=== PATIENT | female | born 1955 | race Caucasian/White ===

== ENCOUNTER 2019-07-14 11:05 | Outpatient (RCR) | payer MEDICARE, SELFPAY ==
[2019-07-14 11:08] VITALS: BMI 27.1
[2019-07-14 11:09] VITALS: BMI 27.1
== END 2019-10-12 23:59 | disposition home or self-care (01) ==
LOC: ANHDMC 11:05
PROVIDERS: Visit Provider Surgery
DX: E66.9 Obesity, unspecified (principal); Z71.3 Dietary counseling and surveillance
CPT/HCPCS: 97802

== ENCOUNTER 2020-11-09 12:54 | Outpatient (CLI) | payer MEDICARE, MEDICAID, SELFPAY ==
--- NOTE | ~2020-11-09 | MM_ITS ---
EXAMINATION: MM screening julia BI w andrea HISTORY: Screening mammogram TECHNIQUE: Craniocaudal and mediolateral oblique 3-D tomosynthesis images were obtained and synthetic 2-D images were generated. CAD analysis was submitted and interpreted. COMPARISON: No prior mammogram is available for comparison at this institution. BREAST PARENCHYMAL COMPOSITION: There are scattered areas of fibroglandular density. FINDINGS: RIGHT BREAST: An asymmetry is present in the posterior third of the lower breast in line with the nip ple axis on the craniocaudal view. LEFT BREAST: There is an obscured mass in the middle third of the outer breast 9 cm from the nipple b est appreciated on craniocaudal tomosynthesis image /. IMPRESSION: 1. Bilateral breast findings as described above. 2. Additional mammographic views and possible breast ultrasound are recommended. BI-RADS Category 0: Incomplete: Needs additional imaging evaluation. Reviewed, dictated and finalized at location A. IMPRESSION: 1. Bilateral breast findings as described above. 2. Additional mammographic views and possible breast ultrasound are recommended . BI-RADS Category 0: Incomplete: Needs additional imaging evaluation.
== END 2020-11-09 12:55 | disposition home or self-care (01) ==
LOC: ANHIMG 13:00
PROVIDERS: PCP Physician Assistant; Visit Provider Physician Assistant
DX: Z12.31 Encounter for screening mammogram for malignant neoplasm of breast (principal); R92.8 Other abnormal and inconclusive findings on diagnostic imaging of breast
CPT/HCPCS: 77063; 77067

== ENCOUNTER 2020-11-15 12:10 | Outpatient (CLI) | payer MEDICARE, MEDICAID, SELFPAY ==
--- NOTE | ~2020-11-15 | MMUS_ITS ---
EXAMINATION: MM diagnostic mammo BI, US breast BI limited HISTORY: Left breast mass and right breast asymmetry on screening mammogram TECHNIQUE: Additional 3-D tomosynthesis images of the breasts were performed and synthetic 2-D images were generated. CAD analysis was submitted and interpreted. High resolution limited bilateral breast ultrasound was performed. COMPARISON: 11/09/2020 FINDINGS: MAMMOGRAPHIC FINDINGS: Right breast: Asymmetry persists in the posterior third of the slightly inner breast 9 cm from the ni pple on the craniocaudal view. No no suspicious calcification or architectural distortion are identif ied. Left breast: There is a 6 mm oval, circumscribed, equal density mass in the middle third of the outer breast at the 3:00 location 8 cm from the nipple. A 7 mm oval, obscured, equal density masses presen t in the posterior third of the breast at the 3:00 location 13 cm from the nipple. ULTRASOUND: Right breast: No sonographic correlate is identified for the mammographic asymmetry. There are dilate d ducts at the 6:00 location of the breast. Left breast: A 12 mm x 3 mm oval, circumscribed, parallel, hypoechoic mass with no posterior features or internal vascularity is present at the 1:00 location 10 cm from the nipple. IMPRESSION: 1. Probably benign bilateral breast findings. 2. Recommend 6 month follow-up bilateral diagnostic mammogram and ultrasound. BI-RADS category 3, probably benign findings. Reviewed, dictated and finalized at location A. IMPRESSION: 1. Probably benign bilateral breast findings. 2. Recommend 6 month follow-up bilateral diagnostic mammogram and ultrasound. BI-RADS category 3, probably benign findings.
== END 2020-11-15 12:11 | disposition home or self-care (01) ==
LOC: ANHIMG 12:13
PROVIDERS: PCP Physician Assistant; Visit Provider Physician Assistant
DX: N63.21 Unspecified lump in the left breast, upper outer quadrant (principal); N60.41 Mammary duct ectasia of right breast
CPT/HCPCS: 76642; 77066

== ENCOUNTER 2021-08-04 13:07 | Outpatient (CLI) | payer MEDICARE, MEDICAID, SELFPAY ==
--- NOTE | ~2021-08-04 | MMUS_ITS ---
EXAMINATION: MM diagnostic julia BI w andrea, US breast LT limited HISTORY: Follow-up breast asymmetries TECHNIQUE: Additional 3-D tomosynthesis images of the breasts were performed and synthetic 2-D images were generated. CAD analysis was submitted and interpreted. High resolution Limited left breast ultr asound was performed. COMPARISON: Comparison to multiple prior studies sequentially, with oldest reviewed study dated 11/09. BREAST PARENCHYMAL COMPOSITION: Breast composed of scattered areas of fibroglandular density. FINDINGS: MAMMOGRAPHIC FINDINGS: The breasts are stable. No suspicious masses, calcifications or architectural distortion in either br east to suggest malignancy. ULTRASOUND: Limited left breast ultrasound: There is a focally prominent duct at the 1:00 position, 10 cm from th e nipple. No suspicious masses to suggest malignancy. IMPRESSION: 1. No evidence for malignancy in either breast. 2. Routine yearly screening mammogram and regular clinical breast examination are recommended. BI-RADS Category 1: Negative Reviewed, dictated and finalized at location A. GHT LOADING SUPERVISOR IMPRESSION: 1. No evidence for malignancy in either breast. 2. Routine yearly screening mammogram and regular clinical breast examination a re recommended. BI-RADS Category 1: Negative
== END 2021-08-04 13:08 | disposition home or self-care (01) ==
LOC: ANHIMG 13:09
PROVIDERS: PCP Physician Assistant; Visit Provider Physician Assistant
DX: R92.8 Other abnormal and inconclusive findings on diagnostic imaging of breast (principal)
CPT/HCPCS: 76642; 77062; 77066; G0279

== ENCOUNTER 2021-11-22 14:07 | Outpatient (CLI) | payer MEDICARE, MEDICAID, SELFPAY ==
--- NOTE | ~2021-11-22 | US_ITS ---
EXAMINATION: US art doppler w press LE BI DATE: 11/22/2021 15:02 INDICATION: Peripheral vascular disease. TECHNIQUE: Segmental pressures and plethysmographic and Doppler waveforms of the brachial and lower e xtremity arteries were obtained. COMPARISON: None. FINDINGS: Right and left brachial artery pressures of 130 mm Hg and 132 mm Hg, respectively, are concordant (no rmal difference <= 30 mmHg). The right and left high-thigh pressure indices are 1.22 and 1.17, respec tively (normal > 1.2). The right ankle-brachial index (NICOLE) is 1.07 (normal >= 0.9-1). The right great toe-brachial index (T BI) is 0.84 (normal >= 0.6-0.8). The right lower extremity segmental pressure gradients are normal (n ormal gradients <= 20-30 mmHg between adjacent levels on the same leg or the same levels on the two l egs). Arterial waveforms are biphasic with brisk systolic upstrokes throughout the arteries of the ri ght lower limb. The left NICOLE is 1.10. The left TBI is 0.66. The left lower extremity segmental pressure gradients are normal. Arterial waveforms are biphasic with brisk systolic upstrokes at the arteries throughout the left lower limb. IMPRESSION: 1. Normal bilateral ABIs and TBIs. No significant occlusive disease. Reviewed, dictated and finalized at location B.
--- NOTE | ~2021-11-22 | US_ITS ---
EXAMINATION: US renal BI DATE: 11/22/2021 15:02 INDICATION: RT FLANK PAIN and stage III chronic kidney disease. TECHNIQUE: Multiple ultrasound grayscale images of the kidneys were obtained. COMPARISON: 06/09/2019. FINDINGS: The right kidney measures 10.0 x 3.9 x 3.2 cm. The left kidney measures 10.1 x 3.9 x 4.9 cm. The kid neys demonstrate normal parenchymal echogenicity. Normal color Doppler flow bilaterally. There is no hydronephrosis. The bladder is partially distended. IMPRESSION: 1. Normal renal ultrasound findings. Reviewed, dictated and finalized at location K.
== END 2021-11-22 14:08 | disposition home or self-care (01) ==
LOC: ANHIMG 14:11
PROVIDERS: PCP Physician Assistant; Visit Provider Physician Assistant
DX: I73.9 Peripheral vascular disease, unspecified (principal)
CPT/HCPCS: 76775; 93923

== ENCOUNTER 2022-09-29 21:01 | Emergency (ER) | payer MEDICARE, MEDICAID, SELFPAY ==
--- NOTE | ~2022-09-29 | XR_ITS ---
XR chest 2V DATE: 09/29/2022 23:16 INDICATION: Dysphagia, burning in the throat, vomiting TECHNIQUE: PA and lateral views COMPARISON: None FINDINGS: Normal heart size. No hilar or mediastinal enlargement. No pulmonary infiltrate or consolid ation, pleural effusion or pulmonary vascular congestion or pneumothorax. Minimal dextroscoliosis of the thoracic spine. IMPRESSION: No active cardiopulmonary disease Reviewed, dictated and finalized at location A. ER SULFATE
[2022-09-29 21:04] VITALS: BP 139/85; PULSE 90; RESP 18; TEMP 36.7; O2SAT 99
[2022-09-29 22:53] LABS: Basophils Absolute Auto 0.1 K/mm3 (0.0-0.1); Basophils Percent Auto 0.8 % (0.2-1.2); Eosinophils Absolute Auto 0.1 K/mm3 (0-0.3); Eosinophils Percent Auto 0.6 % (0-4.4); Hematocrit 39.9 % (37.0-47.0); Hemoglobin 13.9 g/dL (12.0-15.0); Immature Granulocyte Absolute 0.04 K/mm3 (0.00-0.031); Immature Granulocyte Percent A 0.3 % (0-0.5); Lymphocytes Absolute Auto 2.19 K/mm3 (0.9-3.2); Lymphocytes Percent Auto 18.4 % (18.3-44.2); Mean Corpuscular HGB Conc 34.8 g/dl (32-36); Mean Corpuscular Hemoglobin 32.6 pg (26-34); Mean Corpuscular Volume 93.7 fl (80-100); Mean Platelet Volume 9.2 fl (7.4-10.4); Monocytes Absolute Auto 0.9 K/mm3 (0.1-0.6); Monocytes Percent Auto 7.8 % (2.6-8.5); Neutrophils Absolute Auto 8.6 K/mm3 (1.3-6.7); Neutrophils Percent Auto 72.1 % (45.5-73.1); Platelet Count Result 274 k/mm3 (150-375); Red Blood Count 4.26 M/mm3 (4.2-5.4); Red Cell Distribution Width 13.2 % (11.5-14.5); White Blood Count 11.9 K/mm3 (4.5-10.0)
[2022-09-29 22:58] LABS: Add Urine Microscopic? YES; Appearance Urine Clear (Clear); Bilirubin Urine Negative (Negative); Blood Urine Trace-intact (Negative); Color Urine Yellow (Yellow); Glucose Urine UA Negative (Negative); Ketones Urine Negative (Negative); Leukocyte Esterase Ur Negative LEU/UL (Negative); Nitrate Urine Negative (Negative); Protein Urine Negative (Negative); RBC Urine 0-2 /hpf (0-2); Squamous Epithelial Cell Urine Occasional /hpf (Few); Urobilinogen Urine 0.2 mg/dL (<2.0); WBC Urine 0-3 /hpf; pH Urine 6.5 (5.0-9.0)
--- NOTE | 2022-09-29 22:58 | ED.NAVMDI ---
HPI - Nausea/Vomiting/Diarrhea General Chief complaint: Nausea/Vomiting/Diarrhea Stated complaint: Nausea, vomiting Time Seen by Provider: 09/29/22 22:37 History of Present Illness HPI Narrative: 67-year-old female with a history of hypertension and renal artery stenosis reports to the ED for dysphagia x3 months. Patient states she has increasing difficulty swallowing solids and liquids. Reports 2 days ago she had 1 episode of red/orange diarrhea, and one episode of vomiting with scant blood. States she contacted her primary care who prescribed Flagyl and Zofran. She has not had diarrhea or vomiting since. Patient states she was just eating Jay food with chicken, had 2 bites and cannot swallow it, and had to spit it out. Patient reports having a colonoscopy about 4 years ago that showed diverticulosis, no other abnormal findings. She has not had a endoscopy. Denies abdominal pain, fever, chest pain, shortness of breath, urinary complaints. Related Data Home Medications Medication Instructions Recorded Confirmed estradiol 0.01% (0.1 mg/gram) vaginal 09/29/22 vaginal cream hydrocortisone 2.5 % topical cream 09/29/22 with perineal applicator (Procto-Med HC) levothyroxine 88 mcg tablet mcg 09/29/22 lisinopril 10 tablet 09/29/22 mg-hydrochlorothiazide 12.5 mg tablet metronidazole 500 mg tablet mg 09/29/22 ondansetron HCl 8 mg tablet 8 mg PO Q8H 09/29/22 09/29/22 valacyclovir 1 gram tablet mg 09/29/22 Allergies Allergy/AdvReac Type Severity Reaction Status Date / Time No Known Allergies Allergy Verified 09/29/22 21:10 Review of Systems Review of Systems: CONSTITUTIONAL: Denies fever, chills EYES: Denies visual changes, redness, or discharge. ENT: Denies rhinorrhea, congestion, sore throat, or otalgia. CARDIOVASCULAR: Denies chest pain, palpitations, or edema. RESPIRATORY: Denies cough or dyspnea. GASTROINTESTINAL: See HPI GENITOURINARY: Denies dysuria or hematuria. SKIN: Denies rash or itching. MUSCULOSKELETAL: Denies back pain, joint pain, or myalgia. NEUROLOGIC: Denies headache, numbness, dizziness, or weakness. PSYCHIATRIC: Denies anxiety or depression. [facility] Family History Family History (Updated 04/15/14 @ 07:13 by DOCTOR UNKNOWN) Father Cerebrovascular accident Family history of coronary artery disease Mother Carcinoma of colon Grandparent Diabetes mellitus Social History Social History Smoking status: Never smoker Second hand tobacco smoke exposure: No Alcohol intake: never Spiritual care concerns: No Exam Narrative: GENERAL: Well-appearing, well-nourished, and in no acute distress. HEAD: Normocephalic, atraumatic. EYES: PERRLA and EOMI. ENT: Nares clear, no rhinorrhea or epistaxis. Mucous membranes moist. Oropharynx without tonsillar hypertrophy exudate or other lesions. NECK: Supple. No adenopathy or masses. No carotid bruits or JVD CHEST: Clear to auscultation. No respiratory distress. No wheezes rales or rhonchi HEART: Regular rate and rhythm. No murmur heard. Normal peripheral pulses. ABDOMEN: Soft, nontender, nondistended, normal active bowel sounds. No organomegaly, distention, rigidity, guarding. Digital rectal exam did not reveal external hemorrhoids, I did not feel internal hemorrhoids. There was gross blood on exam glove. Hemoccult is positive EXTREMITIES: Normal range of motion. No edema. SKIN: Warm, dry, no rash. NEURO: No focal deficits. Alert and oriented x3. PSYCH: Normal mood and affect. Course Course Emergency Course: Patient is able to tolerate p.o. potassium repletion and GI cocktail without issues. She is expressing that she is unable to tolerate food and water at home, however objectively speaking she has been tolerating p.o. intake fine in the ED. Vital Signs Vital signs: Vital Signs Temperature 98.0 F 09/29/22 21:04 Pulse Rate 90 09/29/22 21:04 Respiratory Rate 18 09/29/22 21:04 Blood Pressure 139/85 09/19
[2022-09-29 23:06] LABS: Alanine Aminotransferase 21 U/L (6-35); Albumin Level 4.6 g/dL (3.5-5.1); Alkaline Phosphatase 98 U/L (38-126); Anion Gap 9 mmol/L (8-16); Aspartate Amino Transferase 22 U/L (14-36); Bilirubin,Total 0.7 mg/dL (0.2-1.3); Blood Urea Nitrogen 13 mg/dL (7-17); Carbon Dioxide 27 mmol/L (22-30); Chloride 100 mmol/L (98-107); Estimated CRCL calculation 35 ml/min; Estimated Glomerular Filt Rate 41; Glucose 99 mg/dL (65-110); Lipase 91 U/L (23-300); Potassium 2.9 mmol/L (3.4-5.0); Sodium 136 mmol/L (137-145)
--- NOTE | 2022-09-29 23:10 | ECG_ITS ---
Measurements Intervals [place] Rate: 72 P: 34 MI: 145 QRS: 65 QRSD: 91 T: 16 QT: 390 QTc: 428 Interpretive Statements SINUS RHYTHM NONSPECIFIC T-WAVE ABNORMALITY NO PREVIOUS ECG AVAILABLE FOR COMPARISON Electronically Signed On 09-30-2022 8:28:32 NETTING INSPECTOR by Elizabeth Lundy M.D.
[2022-09-29] MEDS: ONDANSETRON HCL ODT 4 MG TABLET PO (23:37)
[2022-09-29] MEDS: FAMOTIDINE 20 MG/2 ML VIAL IV PUSH (23:38)
[2022-09-29] MEDS: POTASSIUM CHLORIDE 20 MEQ PACKET (FOR LIQUID) 40 MEQ PO (23:41)
[2022-09-29 23:43] LABS: Magnesium 2.3 mg/dL (1.6-2.3)
[2022-09-30] MEDS: BELLADONNA ALK/PHENOB ELIX 10 ML, MAG HYDROX/ALUMINUM HYD/SIMETH 30 ML, LIDOCAINE HCL 2... PO (00:03)
[2022-09-30 01:31] VITALS: BP 130/82; PULSE 78; RESP 18; TEMP 36.2; O2SAT 100
== END 2022-09-30 01:41 | disposition home or self-care (01) ==
PROVIDERS: Emergency Medicine; Emergency Provider Physician Assistant; PCP Physician Assistant
DX: R13.10 Dysphagia, unspecified (principal); K92.1 Melena; I10 Essential (primary) hypertension; I70.1 Atherosclerosis of renal artery; K57.90 Diverticulosis of intestine, part unspecified, without perforation or abscess without bleeding; R94.31 Abnormal electrocardiogram [ECG] [EKG]
CPT/HCPCS: 36415; 71046; 80053; 81001; 83690; 83735; 85025; 93005; 96374; 99284; A9270

== ENCOUNTER 2023-01-17 13:19 | Outpatient (CLI) | payer MEDICARE, MEDICAID, SELFPAY ==
[2023-01-17 14:20] LABS: Phosphorus 3.6 mg/dL (2.5-4.5)
== END 2023-01-17 13:20 | disposition home or self-care (01) ==
PROVIDERS: PCP Physician Assistant; Visit Provider Physician Assistant
DX: E83.52 Hypercalcemia (principal); E78.5 Hyperlipidemia, unspecified
CPT/HCPCS: 36415; 84100

== ENCOUNTER 2023-02-12 13:05 | Outpatient (CLI) | payer MEDICARE, MEDICAID, SELFPAY ==
--- NOTE | ~2023-02-12 | DEXA_ITS ---
Bone Density Report Name: BUCKY ZIMMERMAN Age: 67 Sex: Female Ethnicity: White Date of : 1955 Indication: postmenopausal; screening for osteoporosis; parental hip fracture; prior fracture; Referring Provider: ARIANE, JORGE Pastrana Study: Bone densitometry was performed. Exam Date: February 12, 2023 Accession number: [id number] Bone Density: Region BMD T-score Z-score Classification AP Spine(L1-L4) 0.852 -1.8 0.0 Osteopenia Femoral Neck (Left) 0.647 -1.8 -0.3 Osteopenia Total Hip (Left) 0.809 -1.1 0.2 Osteopenia Femoral Neck (Right) 0.625 -2.0 -0.5 Osteopenia Total Hip (Right) 0.780 -1.3 -0.1 Osteopenia Total Hip Mean 0.795 -1.2 0.1 Osteopenia World Health Organization criteria for BMD impression classify patients as: Normal (T-score at or above -1.0), Osteopenia (T-score between -1.0 and -2.5), or Osteoporosis (T-score at or below -2.5). 10-year Fracture Risk(1): Major Osteoporotic Fracture 31% Hip Fracture 2.9% Reported Risk Factors: [place] (), Neck BMD=0.625, BMI=25.4, previous fracture, parental fracture (1) FRAX(R) Version 3.08. Fracture probability calculated for an untreated patient. Fracture probability may be lower if the patient has received treatment. Clinical Information Provided by Patient: Has had a low trauma fracture Parent has had a hip fracture Patient maximum height was 63 Menopause Age: 55 Onset of menses at age 14 Number of children 0 Impression: The patient has low bone mass, based on the Right Femoral Neck T-score. The patient has an estimated ten-year risk of hip fracture of 2.9% and an estimated ten-year risk of major fracture of 31%, based on the WHO FRAX algorithm. The patient has risk factors, including: parental hip fracture, previous fracture. Discussion: BONE DENSITY IS LOW AT ONE OR MORE SKELETAL SITES. THE PATIENT'S BMD AND CLINICAL RISK FACTORS CONTRIBUTE TO THIS PATIENT'S INCREASED RISK OF FRACTURE. This patient's lowest T-score is low at one or more skeletal sites. It meets the World Health Organization's (WHO) criteria for ?low bone mass? (T-score between -1.0 and -2.5). The patient's 10-year risk of a major osteoporotic fracture as calculated by FRAX exceeds the threshold where pharmacological therapy is recommended by the National Osteoporosis Foundation (NOF). However, all treatment decisions require clinical judgment and consideration of individual patient factors, including patient preferences, comorbidities, previous drug use, risk factors not captured in the FRAX model (e.g., frailty, falls, vitamin D deficiency, increased bone turnover, interval significant decline in bone density) and possible under or overestimation of fracture risk by FRAX. The patient should follow a healthful lifestyle (good nutrition with adequate ca
== END 2023-02-12 13:06 | disposition home or self-care (01) ==
PROVIDERS: PCP Physician Assistant; Visit Provider Physician Assistant
DX: Z78.0 Asymptomatic menopausal state (principal); M85.89 Other specified disorders of bone density and structure, multiple sites
CPT/HCPCS: 77080

== ENCOUNTER → 2023-05-28 13:26 | Outpatient (CLI) | payer MEDICARE, MEDICAID, SELFPAY ==
--- NOTE | ~2023-05-28 | MM_ITS ---
EXAMINATION: MM screening julia BI w andrea HISTORY: Screening mammogram TECHNIQUE: Craniocaudal and mediolateral oblique 3-D tomosynthesis images were obtained and synthetic 2-D images were generated. CAD analysis was submitted and interpreted. COMPARISON: 08/04/2021 bilateral diagnostic mammography and limited left breast ultrasound examinatio n, reported negative 11/15/2020 diagnostic bilateral mammogram and Limited bilateral breast ultrasound examination, reporte d benign 11/05/2020 bilateral screening mammogram BREAST PARENCHYMAL COMPOSITION: There are scattered areas of fibroglandular density. FINDINGS: Stable fibroglandular asymmetry. Scattered benign calcifications. There is no evidence of s uspicious mass, calcification, or architectural distortion to suggest malignancy in either breast. Th ere has been no suspicious interval change. IMPRESSION: 1. No mammographic evidence of malignancy. 2. Recommend routine screening mammography in one year. BI-RADS Category 2: Benign finding(s). Reviewed, dictated and finalized at location A.
== END ==
PROVIDERS: PCP Physician Assistant; Visit Provider Physician Assistant
DX: Z12.31 Encounter for screening mammogram for malignant neoplasm of breast (principal)
CPT/HCPCS: 77063; 77067

== ENCOUNTER 2023-10-14 14:34 | Emergency (ER) | payer MEDICARE, MEDICAID, SELFPAY ==
--- NOTE | ~2023-10-14 | US_ITS ---
EXAMINATION: US venous doppler [facility] DATE: 10/14/2023 18:05 INDICATION: pain, swelling BLE . TECHNIQUE: Grayscale images without and with compression and Doppler images of the bilateral lower ex tremity veins were obtained. COMPARISON: None FINDINGS: The right common femoral vein, profunda (deep) femoral vein, femoral vein, popliteal vein, peroneal v ein, posterior tibial veins, gastrocnemius vein, and greater saphenous vein are patent. The left common femoral vein, profunda (deep) femoral vein, femoral vein, popliteal vein, peroneal v ein, posterior tibial veins, gastrocnemius vein, and greater saphenous vein are patent. IMPRESSION: Patent bilateral lower extremity veins. No evidence of deep venous thrombosis. Reviewed, dictated and finalized at location K. E MARKER SMALL ARMS
[2023-10-14 15:02] VITALS: BP 120/80; PULSE 100; RESP 16; TEMP 37.2; O2SAT 100
--- NOTE | 2023-10-14 16:39 | ED.EXTPRO ---
HPI - Extremity Problem General Chief complaint: Extremity Problem,Nontraumatic <ANTONIO Guerra Last Filed: 10/14/23 16:50> Stated complaint: swollen foot <ANTONIO Guerra Last Filed: 10/14/23 16:50> Time Seen by Provider: 10/14/23 16:39 <ANTONIO Guerra Last Filed: 10/14/23 16:50> Focused HPI: Patient is a 68 y/o female who presents to the ED with c/o BLE swelling. Patient reports she was admitted to the hospital last week in [place] where she was visiting her sister. She was admitted for a SBO, underwent what she describes as a colonoscopy and had scar tissue removed. States she was told to stop her Lisinopril-hydrochlorothiazide during her hospitalization as she was also found to have hypokalemia at that time. Patient has been off of this medication for the last 1 week. Reports having increased pain in her lower extremities, calves down to her feet and toes. Complains of pain bilaterally, worse on the right, worse in her right 1st toe. Patient denies any numbness or tingling. Denies hx of DVT, though reports FHx of this. Denies hx of CHF. Denies CP/SOB. She is not on any anticoagulation. Denies any further abdominal concerns. GENERAL: Well-appearing, well-nourished, and in no acute distress. HEAD: Normocephalic, atraumatic. EYES: L eye strabismus. CHEST: Clear to auscultation. ?No respiratory distress. HEART: Regular rate and rhythm.?Pedal pulses easily palpable and intact bilaterally. MSK: Trace BLE, worse on R. Erythema noted to right dorsal foot extending into right 1st toe. Mild tenderness to palpation over right 1st MTP joint. Sensation intact. Cap refill intact. NEURO: ?Alert and oriented x3. Patient screened in triage and initial orders placed.? ?Additional care and disposition to be based upon?diagnostic testing and treatment. <ANTONIO Guerra Last Filed: 10/14/23 16:50> Source: patient <ANTONIO Guerra Last Filed: 10/14/23 16:50> Mode of arrival: ambulatory <Nini Walton PA-C - Last Filed: 10/14/23 16:50> Limitations: no limitations <Nini Walton PA-C - Last Filed: 10/14/23 16:50> Related Data Home medications: Home Medications Medication Instructions Recorded Confirmed estradiol 0.01% (0.1 mg/gram) vaginal 09/29/22 10/10/22 vaginal cream hydrocortisone 2.5 % topical cream 09/29/22 10/10/22 with perineal applicator (Procto-Med HC) levothyroxine 88 mcg tablet mcg 09/29/22 10/10/22 lisinopril 10 tablet 09/29/22 10/10/22 mg-hydrochlorothiazide 12.5 mg tablet metronidazole 500 mg tablet mg 09/29/22 10/10/22 ondansetron HCl 8 mg tablet 8 mg PO Q8H 09/29/22 10/10/22 valacyclovir 1 gram tablet mg 09/29/22 10/10/22 <ANTONIO Guerra Last Filed: 10/14/23 16:50> Allergies/Adverse reactions: Allergies Allergy/AdvReac Type Severity Reaction Status Date / Time No Known Allergies Allergy Verified 10/10/22 11:18 <Nini Walton PA-C - Last Filed: 10/14/23 16:50> Review of Systems Review of Systems: All systems reviewed & are unremarkable except as noted in HPI and below <Maggie Kwon MD - Last Filed: 10/14/23 18:57> [facility] Past Medical History Medical History: Medical History Diverticulosis Dysphagia Family hx of colon cancer GERD (gastroesophageal reflux disease) Hematochezia Hypertension <ANTONIO Guerra Last Filed: 10/14/23 16:50> Family History Family History: Family History Father Cerebrovascular accident Family history of coronary artery disease Mother Carcinoma of colon Grandparent Diabetes mellitus <ANTONIO Guerra Last Filed: 10/14/23 16:50> Social History Social History: Social History Smoking s
[2023-10-14 17:00] LABS: Basophils Absolute Auto 0.1 K/mm3 (0.0-0.1); Basophils Percent Auto 1.3 % (0.2-1.2); Eosinophils Absolute Auto 0.2 K/mm3 (0-0.3); Eosinophils Percent Auto 3.1 % (0-4.4); Hematocrit 41.2 % (37.0-47.0); Hemoglobin 13.5 g/dL (12.0-15.0); Immature Granulocyte Absolute 0.02 K/mm3 (0.00-0.031); Immature Granulocyte Percent A 0.3 % (0-0.5); Lymphocytes Absolute Auto 1.47 K/mm3 (0.9-3.2); Mean Corpuscular HGB Conc 32.8 g/dl (32-36); Mean Corpuscular Hemoglobin 32.9 pg (26-34); Mean Corpuscular Volume 100.5 fl (80-100); Mean Platelet Volume 9.6 fl (7.4-10.4); Monocytes Absolute Auto 0.6 K/mm3 (0.1-0.6); Monocytes Percent Auto 9.1 % (2.6-8.5); Neutrophils Absolute Auto 4.3 K/mm3 (1.3-6.7); Neutrophils Percent Auto 64.2 % (45.5-73.1); Platelet Count Result 310 k/mm3 (150-375); Red Cell Distribution Width 12.7 % (11.5-14.5); White Blood Count 6.7 K/mm3 (4.5-10.0)
[2023-10-14 17:08] LABS: Alanine Aminotransferase 40 U/L (6-35); Albumin Level 4.3 g/dL (3.5-5.1); Alkaline Phosphatase 94 U/L (38-126); Anion Gap 9 mmol/L (8-16); Aspartate Amino Transferase 29 U/L (14-36); Bilirubin,Total 0.9 mg/dL (0.2-1.3); Blood Urea Nitrogen 10 mg/dL (7-17); Calcium 9.7 mg/dL (8.4-10.2); Carbon Dioxide 25 mmol/L (22-30); Chloride 108 mmol/L (98-107); Estimated CRCL calculation 40 ml/min; Estimated Glomerular Filt Rate 55; Glucose 90 mg/dL (65-110); Potassium 3.4 mmol/L (3.4-5.0); Sodium 142 mmol/L (137-145)
[2023-10-14 17:12] LABS: Prothrombin Time 13.3 Seconds (11.1-14.7)
[2023-10-14 17:13] LABS: Partial Thromboplastin Time 27.4 SECONDS (22.3-36.8)
[2023-10-14 17:16] LABS: NT Pro B Type Natriuretic Pept 287 pg/mL (19.9-100)
--- NOTE | 2023-10-14 17:26 | PC.NURSE ---
Pt right great toe edematous, hot to touch, tender to touch. Pt reports for a few days . Pedal pulse palpable & strong. Denies diabetes
--- NOTE | 2023-10-14 17:29 | PC.NURSE ---
US notified pt in room #17 & ready for doppler
[2023-10-14 19:15] VITALS: BP 164/89; PULSE 81; RESP 18; TEMP 36.4; O2SAT 99
== END 2023-10-14 19:18 | disposition home or self-care (01) ==
PROVIDERS: Physician Assistant; Emergency Provider Emergency Medicine
DX: L03.115 Cellulitis of right lower limb (principal); I10 Essential (primary) hypertension; K21.9 Gastro-esophageal reflux disease without esophagitis; M79.605 Pain in left leg; M79.604 Pain in right leg
CPT/HCPCS: 36415; 80053; 83880; 85025; 85610; 85730; 93970; 99284

== ENCOUNTER 2025-02-17 14:14 | Outpatient (CLI) | payer MEDICARE, MEDICAID, SELFPAY ==
--- NOTE | ~2025-02-17 | DEXA_ITS ---
Bone Density Report Name: BUCKY ZIMMERMAN Age: 69 Sex: Female Ethnicity: White Date of : 1955 Indication: osteopenia; height loss; Referring Provider: KAROLINA, NINO Pastrana Study: Bone densitometry was performed. Exam Date: February 17, 2025 Accession number: [id number] Bone Density: Region BMD T-score Z-score Classification AP Spine(L1-L4) 0.837 -1.9 0.0 Osteopenia Femoral Neck (Left) 0.602 -2.2 -0.6 Osteopenia Total Hip (Left) 0.754 -1.5 -0.2 Osteopenia Femoral Neck (Right) 0.601 -2.2 -0.6 Osteopenia Total Hip (Right) 0.750 -1.6 -0.2 Osteopenia Total Hip Mean 0.752 -1.6 -0.2 Osteopenia World Health Organization criteria for BMD impression classify patients as: Normal (T-score at or above -1.0), Osteopenia (T-score between -1.0 and -2.5), or Osteoporosis (T-score at or below -2.5). 10-year Fracture Risk(1): Major Osteoporotic Fracture 12% Hip Fracture 2.2% Reported Risk Factors: [place] (), Neck BMD=0.602, BMI=26.2 (1) FRAX(R) Version 3.08. Fracture probability calculated for an untreated patient. Fracture probability may be lower if the patient has received treatment. Previous Exams: -- Region Exam Age BMD T-score BMD Change BMD Change Date g/cm2 vs Baseline vs Previous -- AP Spine (L1-L4) 02/17/2025 69 0.837 -1.9 -1.7% -1.7% 02/12/2023 67 0.852 -1.8 Total Hip(Left) 02/17/2025 69 0.754 -1.5 -6.7%* -6.7%* 02/12/2023 67 0.809 -1.1 Total Hip(Right) 02/17/2025 69 0.750 -1.6 -3.9%* -3.9%* 02/12/2023 67 0.780 -1.3 -- *Denotes significance at 95% confidence level, LSC for AP Spine = 0.022 g/cm2, LSC for Total Hip = 0.027 g/cm2 Clinical Information Provided by Patient: Has used the following medications: Vitamin D Patient maximum height was 63 Menopause Age: 55 Onset of menses at age 14 Number of children 0 Impression: The patient has low bone mass, based on the Left Femoral Neck T-score. The patient has an estimated ten-year risk of hip fracture of 2.2% and an estimated ten-year risk of major fracture of 12%, based on the WHO FRAX algorithm. The BMD for the Total Hip(Left) decreased, changing by -6.7% since the last DXA exam. The BMD for the Total Hip(Right) decreased, changing by -3.9% since the last DXA exam. Discussion: BONE DENSITY IS LOW AT ONE OR MORE SKELETAL SITES. This patient's lowest T-score is low at one or more skeletal sites. It meets the World Health Organization's (WHO) criteria for ?low bone mass? (T-score between -1.0 and -2.5). The patient's 10-year risk of fracture as calculated by FRAX is less than the threshold where pharmacological therapy is recommended by the National Osteoporosis Foundation (NOF). However, all treatment decisions require clinical judgment and consideration of individual patient factors, including patient preferences, comorbidities, previous drug use, risk factors not captured in the FRAX model (e.g., frailty, falls, vitamin D deficiency, increased bone turnover, interval significant decline in bone density) and possible under or overestimation of fracture risk by FRAX. The patient should follow a healthful lifestyle (good nutrition with adequate calcium and vitamin D, and appropriate weight-bearing exercise). Follow-Up: Consider repeating this study in 2 years to reassess this patient's status, or sooner if there is some new clinical indication. Reported by: JASON on 02/17/2025 2:50:00 PM. Reviewed, dictated and finalized at location A.
== END 2025-02-17 14:15 | disposition home or self-care (01) ==
LOC: MICIMG 14:18
PROVIDERS: PCP Emergency Medicine; Visit Provider Emergency Medicine
DX: M85.89 Other specified disorders of bone density and structure, multiple sites (principal); M81.0 Age-related osteoporosis without current pathological fracture
CPT/HCPCS: 77080

== ENCOUNTER 2025-07-22 14:33 | Outpatient (CLI) | payer MEDICARE, MEDICAID, SELFPAY ==
[2025-07-22 15:41] LABS: Cholesterol 152 mg/dL (0-200); HDL Direct 56 mg/dL; Triglycerides 48 mg/dL (<150)
[2025-07-22 16:18] LABS: Thyroid Stimulating Hormone 7.750 uIU/mL (0.465-4.680)
== END 2025-07-22 14:34 | disposition home or self-care (01) ==
LOC: ANHLAB 14:39
PROVIDERS: PCP Emergency Medicine; Visit Provider Emergency Medicine
DX: Z13.220 Encounter for screening for lipoid disorders (principal); R79.89 Other specified abnormal findings of blood chemistry; I10 Essential (primary) hypertension
CPT/HCPCS: 36415; 80061; 84443

== ENCOUNTER 2025-08-10 11:15 | Outpatient (CLI) | payer MEDICARE, MEDICAID, SELFPAY ==
--- OUTSIDE RECORDS SUMMARY | 2025-08-10 11:44 | XMS_ITS | Clinical Summary ---
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 Gender Identity Not on file Sexual Orientation Not on file Plan of Treatment Health Maintenance Due Date Last Done Comments Hepatitis C Virus (HCV) Screening 1955 TdaP Immunization 1955 Cologuard 2002 Immunochemical Fecal Occult Blood 2002 Pneumococcal Immunization (5 0+ years) (1 of 1 - PCV) 2007 Zoster Immunization (1 of 2) 2007 Influenza Immunization (#1) 2025 SARS-COV-2 Immunization ( season) 2025 Colonoscopy 09/17/2028 09/17/2018 Colorectal Cancer Screening 09/17/2028 Respiratory Syncytial Virus (RSV) Immunization (Adult) (1 - 1-dose 75+ series) 2032 Hepatitis B Immunization Aged Out No longer eligible based on patient's age to complete this topic Human Papillomavirus (HPV) Immunization Aged Out No longer eligible b ased on patient's age to complete this topic Meningococcal Immunization (ACWY) Aged Out No longer eligible based on patient's age to complete this topic Rotavirus Immunization Aged Out No lo nger eligible based on patient's age to complete this topic Procedures Procedure Name Priority Date/Time Associated Diagnosis Comments HM COLONOSCOPY Routine 09/17/2018 from Last 3 Months or Most Recently Relevant to Health Maintenance Results * COLONOSCOPY (09/17/2018) Brad Allen DO PROCEDURE/MINOR SURGICAL ORDERA BLES Final Result from Last 3 Months or Most Recently Relevant to Health Maintenance Insurance MEDICARE Care Teams Child Psychometrist Relationship Specialty Start Date End Date Alma Cuevas PAC [address] [place] [address] PCP - General Physician Junior Financial Analyst 08/07/18
--- NOTE | 2025-08-21 15:20 | WPDHOLTEREM ---
Holter/Event Monitor Holter/Event Monitor Date of procedure: 08/10/25 Holter/Event Procedure: 3-7 Day Holter Monitor Indications: Palpitations Conclusion: 1. 3 days holter monitor on 08/10/25. 2. Predominant rhythm is sinus rhythm. HR range 58-188 bpm; average 82 bpm. 3. There are rare premature supraventricular complexes, rare supraventricular couplets, and rare supraventricular triplets. There are 11 episodes of supraventricular tachycardia with fastest at 188 bpm and longest lasting 5 beats. 4. There are rare premature ventricular complexes and 1 ventricular triplet. No ventricular tachycardia. 5. No significant pauses greater than 3 seconds. 6. No symptoms available for correlation.
== END 2025-08-10 11:16 | disposition home or self-care (01) ==
PROVIDERS: PCP Emergency Medicine; Visit Provider Emergency Medicine
DX: I49.1 Atrial premature depolarization (principal); I47.10 Supraventricular tachycardia, unspecified; I49.3 Ventricular premature depolarization; R00.2 Palpitations
CPT/HCPCS: 93242